=== PATIENT | male | born 1975 | race Caucasian/White ===

== ENCOUNTER 2020-11-17 19:08 | Inpatient (IN) | payer SELFPAY ==
[~2020-11-17] VITALS: Ht 152.7 cm; Wt 82.6 kg
[2020-11-17 21:08] LABS: BASOPHILS % 0.3 % (0.0-2.0); EOSINOPHILS % 0.3 % (0.0-5.0); HEMATOCRIT. 26.1 % (42.0-52.0); HEMOGLOBIN. 8.3 g/dL (14.0-18.0); LYMPHOCYTES % 30.8 % (20.0-50.0); MEAN CORPUSCULAR HEMOGLOBIN 30.1 pg (28.0-32.0); MEAN CORPUSCULAR VOLUME 95.1 fL (80.0-94.0); MONOCYTES % 14.7 % (2.0-8.0); NEUTROPHILS % 53.9 % (40.0-76.0); RED BLOOD CELL COUNT 2.75 mill/uL (4.7-6.1); RED CELL DISTRIBUTION WIDTH 20.2 % (11.6-14.6)
[2020-11-17 21:17] LABS: CHLORIDE 113 mEq/L (98-107)
[2020-11-17 21:19] LABS: INR 1.3
[2020-11-17 21:34] LABS: ETHANOL BLOOD 397 mg/dL
[2020-11-17] MEDS ORDERED: SODIUM CHLORIDE 0.9% 1,000 ML IV ONE (22:00)
[2020-11-17] MEDS ORDERED: CEFTRIAXONE 1 G PREMIX 50 ML IV ONE (22:00)
[2020-11-18 03:56] LABS: CLARITY URINE CLEAR (CLEAR); COLOR URINE DK YELLOW (YELLOW); KETONES URINE TRACE (NEGATIVE); LEUKOCYTE ESTERASE URINE NEGATIVE (NEGATIVE); NITRITE URINE NEGATIVE (NEGATIVE); OCCULT BLOOD URINE NEGATIVE (NEGATIVE); PROTEIN URINE TRACE (NEGATIVE); SPECIFIC GRAVITY URINE 1.023 (1.005-1.030)
[2020-11-18 05:04] LABS: *AMPHETAMINES SCREEN URINE NEGATIVE (NEGATIVE); *BARBITURATES SCREEN URINE NEGATIVE (NEGATIVE); *BENZODIAZEPINES SCREEN URINE NEGATIVE (NEGATIVE); *COCAINE SCREEN URINE NEGATIVE (NEGATIVE); METHADONE URINE SCREEN NEGATIVE (NEGATIVE)
[2020-11-18 05:05] LABS: CANNABINOID URINE SCREEN NEGATIVE (NEGATIVE); OPIATES URINE SCREEN NEGATIVE (NEGATIVE); PHENCYCLIDINE URINE SCREEN NEGATIVE (NEGATIVE)
[2020-11-18 08:00] VITALS: BP 122/82
[2020-11-18] MEDS ORDERED: FUROSEMIDE 40MG TABLET PO SCH (09:00)
[2020-11-18] MEDS: FUROSEMIDE 40MG/4ML VIAL IVP SCH (09:25)
[2020-11-18] MEDS: SPIRONOLACTONE 50MG TABLET PO SCH (09:26)
[2020-11-18] MEDS: PANTOPRAZOLE 40MG DR TABLET PO SCH (09:26)
[2020-11-18] MEDS: MULTIVITAMINS,THER W-MINERALS TABLET PO SCH (09:26)
[2020-11-18] MEDS: METOPROLOL TARTRATE 50MG TABLET PO SCH ×2 (09:26→20:27)
[2020-11-18 11:25] VITALS: BP 122/82
[2020-11-18] MEDS ORDERED: ONDANSETRON HCL 4MG/2ML INJ IV PRN (11:45)
[2020-11-18] MEDS ORDERED: NALOXONE HCL 0.4MG/ML VIAL IV PRN (11:45)
[2020-11-18] MEDS ORDERED: HYDROCODONE/ACETAMINOPHEN 5/325MG TABLET PO PRN (11:45)
[2020-11-18 12:00] VITALS: BP 149/93
[2020-11-18] MEDS: FOLIC ACID 1 MG, THIAMINE HCL 100 MG in DEXTROSE 5% WATER 1,000 ML IV SCH (13:52)
[2020-11-18] MEDS ORDERED: INFLUENZA VACCINE 05/PF 0.5 ML SYRINGE IM ONE (15:30)
[2020-11-18] MEDS ORDERED: PNEUMOCOCCAL 23-VAL P-SAC VAC 0.5 ML IM ONE (15:30)
[2020-11-18 16:00] VITALS: BP 144/86
[2020-11-18 20:00] VITALS: BP 132/89
[2020-11-19] VITALS: BP 139/89
[2020-11-19 04:00] VITALS: BP 153/88
[2020-11-19 07:13] LABS: BASOPHILS % 1.1 % (0.0-2.0); EOSINOPHILS % 1.6 % (0.0-5.0); HEMATOCRIT. 23.8 % (42.0-52.0); HEMOGLOBIN. 7.7 g/dL (14.0-18.0); MEAN CORPUSCULAR HEMOGLOBIN 30.5 pg (28.0-32.0); MEAN CORPUSCULAR VOLUME 94.3 fL (80.0-94.0); MEAN PLATELET VOLUME 8.9 fl (7.4-10.4); MONOCYTES % 11.2 % (2.0-8.0); NEUTROPHILS % 64.1 % (40.0-76.0); PLATELET 109 x1000/uL (130-400); RED BLOOD CELL COUNT 2.52 mill/uL (4.7-6.1); RED CELL DISTRIBUTION WIDTH 19.8 % (11.6-14.6)
[2020-11-19 07:27] LABS: CHLORIDE 109 mEq/L (98-107)
[2020-11-19 07:29] LABS: INR 1.2; PARTIAL THROMBOPLASTIN TIME 36.6 sec (23.4-31.0); PROTHROMBIN TIME 13.2 sec (9.6-11.0)
[2020-11-19 08:00] VITALS: BP 152/94
[2020-11-19] MEDS ORDERED: LIDOCAINE HCL 1% 20ML VIAL (Pyxis) INJ ONE (08:06)
[2020-11-19] MEDS ORDERED: SODIUM BICARBONATE 4% (2.4MEQ) 5ML VIAL IV ONE (08:06)
[2020-11-19] MEDS: FUROSEMIDE 40MG/4ML VIAL IVP SCH (11:06)
[2020-11-19] MEDS: FOLIC ACID 1 MG, THIAMINE HCL 100 MG in DEXTROSE 5% WATER 1,000 ML IV SCH (11:06)
[2020-11-19] MEDS: MULTIVITAMINS,THER W-MINERALS TABLET PO SCH (11:07)
[2020-11-19] MEDS: METOPROLOL TARTRATE 50MG TABLET PO SCH (11:07)
[2020-11-19] MEDS: PANTOPRAZOLE 40MG DR TABLET PO SCH (11:07)
[2020-11-19] MEDS: SPIRONOLACTONE 50MG TABLET PO SCH (11:07)
[2020-11-19 12:00] VITALS: BP 146/82
[2020-11-19] MEDS ORDERED: SPIR100T5 MT (12:38)
[2020-11-19] MEDS ORDERED: FURO-151 MT (12:38)
[2020-11-19] MEDS ORDERED: AMLO10TA80 MT (12:38)
[2020-11-19] MEDS ORDERED: METO-539 PO (12:38)
[2020-11-19] MEDS ORDERED: POTASSIUM CHLORIDE 20MEQ TABLET SR PO NR (12:45)
[2020-11-19 14:21] VITALS: BP 133/72
[2020-11-19 16:00] VITALS: BP 133/72
== END 2020-11-19 19:15 | disposition home or self-care (01) ==
LOC: ER 19:08 → EDBEDREQ 23:14 → EDBEDREQTM 23:14 → MICUSO 11-18 00:04 → 8WST 11-18 05:11
PROVIDERS: ADMIT Internal Medicine; ATTEND Internal Medicine
PROC: 0W9G3ZZ Drainage of Peritoneal Cavity, Percutaneous Approach (ICD-10-PCS; principal; 2020-11-19)
DX: K74.60 Unspecified cirrhosis of liver (principal); K85.90 Acute pancreatitis without necrosis or infection, unspecified; E43 Unspecified severe protein-calorie malnutrition; R18.8 Other ascites; E87.8 Other disorders of electrolyte and fluid balance, not elsewhere classified; E11.9 Type 2 diabetes mellitus without complications; E66.9 Obesity, unspecified; D64.9 Anemia, unspecified; F10.129 Alcohol abuse with intoxication, unspecified; Y90.8 Blood alcohol level of 240 mg/100 ml or more; Z71.41 Alcohol abuse counseling and surveillance of alcoholic; Z20.822 Contact with and (suspected) exposure to COVID-19; Z68.35 Body mass index [BMI] 35.0-35.9, adult; Z71.3 Dietary counseling and surveillance
CPT/HCPCS: 36415; 49083; 71045; 74176; 80048; 80053; 80305; 80320; 81003; 83605; 83880; 84484; 85025; 85049; 87426; 90686; 90732; 93306; 99291; J0696; J1940; J3411; J3490; J7030; J7070; G0480

== ENCOUNTER → 2023-03-26 | Emergency (ER) | payer MEDICAID ==
[~2023-03-26] VITALS: Ht 170.2 cm; Wt 82.0 kg
[~2023-03-26] MED LIST: ACETAMINOPHEN 325MG TABLET PO PRN; AMLO10TA80 MT; AMOX1TAB16 MT; BLOOD SUGAR DIAGNOSTIC STRIP TEST SCH; DEXT 5%/0.45% NACL 500ML 1,000 ML IV ONE; DEXTROSE 50% WATER 50ML SYRINGE IV PRN; FURO-151 MT; INSULIN LISPRO 100 UNITS/ML SUBCUT SCH; IPRATROPIUM/ALBUTEROL 0.5-3(2.5)MG/3ML NEB HHN PRN; LACTULOSE ENEMA 1,000ML BOTTLE PR STA; LACTULOSE PR NR; METO-539 PO; MVI, ADULT NO.1 10 ML, FOLIC ACID 1 MG, THIAMINE HCL 100 MG in SODIUM CHLORIDE 0.9% 1,0... IV ONE; ONDANSETRON HCL 4MG/2ML INJ IV PRN; RIFAXIMIN 550 MG TABLET PO SCH; SODIUM CHLORIDE 0.45% 1,000 ML IV SCH; SPIR100T5 MT; SUCR1TAB MT; THIA100T88 MT; THIAMINE HCL 100MG TABLET PO SCH; WATER FOR IRRIGATION STERILE PR NR
[2023-03-26 16:34] LABS: HEMATOCRIT. 21.9 % (42.0-52.0); MEAN CORPUSCULAR HEMOGLOBIN 21.9 pg (28.0-32.0); MEAN CORPUSCULAR HGB CONC 29.7 g/dL (31.0-37.0); MEAN PLATELET VOLUME 9.4 fl (7.4-10.4); PLATELET 140 x1000/uL (130-400); RED BLOOD CELL COUNT 2.96 mill/uL (4.7-6.1); RED CELL DISTRIBUTION WIDTH 23.3 % (11.6-14.6); WHITE BLOOD COUNT 8.9 x1000/uL (4.5-11.0)
[2023-03-26 16:38] LABS: DIFFERENTIAL COMMENT 1; HEMOGLOBIN. 6.5 g/dL (14.0-18.0)
[2023-03-26 16:47] LABS: ALANINE AMINOTRANSFERASE 383 IU/L (10-49); ALBUMIN 4.1 g/dL (3.2-4.8); ASPARTATE AMINOTRANSFERASE 734 IU/L (<34); BILIRUBIN TOTAL 2.8 mg/dL (0.1-1.0); CALCIUM 9.3 mg/dL (8.7-10.4); CARBON DIOXIDE 17 mEq/L (21-32); CHLORIDE 104 mEq/L (98-107); CREATININE 0.9 mg/dL (0.6-1.3); GLUCOSE 233 mg/dL (70-105); POTASSIUM 4.2 mEq/L (3.5-5.1); SODIUM 142 mEq/L (136-145); UREA NITROGEN BLOOD 23 mg/dL (9-23)
[2023-03-26 17:20] LABS: ANISOCYTOSIS 2+; HYPOCHROMASIA 2+; MICROCYTOSIS 2+; PLATELET ESTIMATE NORMAL
[2023-03-26] MEDS: LORAZEPAM 1MG TABLET PO ONE (18:00)
[2023-03-26 18:42] LABS: TROPONIN I HIGH SENSITIVITY 25 ng/L (3.0-53)
[2023-03-27] MEDS: SODIUM CHLORIDE 0.9% 1,000 ML IV SCH (01:08)
[2023-03-27] MEDS: PANTOPRAZOLE SODIUM 40 MG/VIAL IV SCH (01:09)
[2023-03-27 02:21] LABS: BG BASE EXCESS -4.9 mmol/L (-2.0-2.0); BG CARBOXYHEMOGLOBIN 0.6 % (0.5-1.5); BG DEOXYHEMOGLOBIN 5.5 % (0.0-5.0); BG FRACTION INSPIRED OXYGEN 12; BG HCO3 ACT 18.2 mmol/L (22.0-26.0); BG METHEMOGLOBIN 0.3 % (0.0-1.5); BG OXYGEN SATURATION 94.5 % (92.0-98.5); BG OXYHEMOGLOBIN 93.6 % (94.0-97.0); BG PCO2 25.9 mmHg (35.0-45.0); BG PH 7.465 (7.350-7.450); BG PO2 77.5 mmHg (75.0-100.0); BG SAMPLE SITE LEFT RADIAL; BG TOTAL HEMOGLOBIN 7.3 g/dL (12.0-18.0); BG VENT MODE ROOM AIR
[2023-03-27 02:37] LABS: HEMATOCRIT 23.5 % (42.0-52.0); HEMOGLOBIN 7.1 g/dL (14.0-18.0)
[2023-03-27 02:51] LABS: INR 1.4; PROTHROMBIN TIME 15.7 sec (9.6-11.0)
[2023-03-27 03:00] LABS: AMMONIA 181 uMol/L (<32)
[2023-03-27 03:01] LABS: LACTIC ACID 8.3 mmol/L (0.4-2.0)
[2023-03-27 03:24] LABS: AMYLASE 105 IU/L (30-118); BILIRUBIN DIRECT 2.6 mg/dL (<=3.0); CALCIUM 8.9 mg/dL (8.7-10.4); CARBON DIOXIDE 20 mEq/L (21-32); CHLORIDE 111 mEq/L (98-107); CREATININE 0.8 mg/dL (0.6-1.3); GAMMA GLUTAMYL TRANSPEPTIDASE 755 IU/L (<73); GLUCOSE 188 mg/dL (70-105); PHOSPHORUS 2.8 mg/dL (2.5-4.9); POTASSIUM 4.1 mEq/L (3.5-5.1); SODIUM 147 mEq/L (136-145); UREA NITROGEN BLOOD 29 mg/dL (9-23)
[2023-03-27] MEDS: THIAMINE HCL 100MG TABLET PO SCH (03:45)
[2023-03-27 03:46] LABS: ETHANOL BLOOD < 10 mg/dL (<10)
[2023-03-27] MEDS: LACTULOSE 20G/30ML UDC PO SCH (04:41)
[2023-03-27 04:48] LABS: HEPATITIS B SURFACE AB < 3.1 mIU/mL (<10); HEPATITIS C AB NON REACTIVE (Neg) (Negative)
[2023-03-27] MEDS: DEXT 5%/0.45% NACL 1000ML IV SCH (04:50)
[2023-03-27 05:32] LABS: CREATINE KINASE 1298 IU/L (46-171); CREATINE KINASE MB FRACTION 17.5 ng/mL (0.5-3.6); PHOSPHORUS 3.3 mg/dL (2.5-4.9)
[2023-03-27 05:43] LABS: TROPONIN I HIGH SENSITIVITY 195 ng/L (3.0-53)
[2023-03-27] MEDS: LABETALOL 5MG/ML SYR 20 MG/4 ML SYRINGE IV NR (06:46)
[2023-03-27 07:26] LABS: BG BASE EXCESS -14.7 mmol/L (-2.0-2.0); BG CARBOXYHEMOGLOBIN 1.4 % (0.5-1.5); BG DEOXYHEMOGLOBIN 2.4 % (0.0-5.0); BG FRACTION INSPIRED OXYGEN 32; BG HCO3 ACT 9.4 mmol/L (22.0-26.0); BG METHEMOGLOBIN 0.6 % (0.0-1.5); BG OXYGEN SATURATION 97.6 % (92.0-98.5); BG OXYHEMOGLOBIN 95.6 % (94.0-97.0); BG PCO2 16.7 mmHg (35.0-45.0); BG PH 7.368 (7.350-7.450); BG PO2 124.4 mmHg (75.0-100.0); BG SAMPLE SITE RIGHT BRACHIAL; BG TOTAL HEMOGLOBIN 5.6 g/dL (12.0-18.0); BG VENT MODE NASAL CANNULA
[2023-03-27 07:41] LABS: CLARITY URINE CLEAR (CLEAR); COLOR URINE DARK YELLOW (YELLOW); GLUCOSE URINE NEGATIVE (NEGATIVE); KETONES URINE TRACE (NEGATIVE); LEUKOCYTE ESTERASE URINE NEGATIVE (NEGATIVE); NITRITE URINE NEGATIVE (NEGATIVE); OCCULT BLOOD URINE NEGATIVE (NEGATIVE); PH URINE 6.5 (4.5-8.0); PROTEIN URINE TRACE (NEGATIVE); SPECIFIC GRAVITY URINE 1.024 (1.005-1.030)
[2023-03-27 08:17] LABS: *AMPHETAMINES SCREEN URINE NEGATIVE (NEGATIVE); *BARBITURATES SCREEN URINE NEGATIVE (NEGATIVE); *BENZODIAZEPINES SCREEN URINE NEGATIVE (NEGATIVE); *COCAINE SCREEN URINE NEGATIVE (NEGATIVE); CANNABINOID URINE SCREEN NEGATIVE (NEGATIVE); ECSTASY MDMA SCREEN URINE NEGATIVE (NEGATIVE); METHADONE URINE SCREEN Neg (NEGATIVE); OPIATES URINE SCREEN NEGATIVE (NEGATIVE); PHENCYCLIDINE URINE SCREEN NEGATIVE (NEGATIVE)
[2023-03-27 08:21] LABS: SQUAMOUS EPITHELIAL CELL URINE FEW /lpf (RARE/1+)
[2023-03-27 08:22] LABS: RBC URINE 0-2 /hpf (0-2); WBC URINE 0-2 /hpf (0-2)
[2023-03-27 08:23] LABS: BACTERIA URINE TRACE
[2023-03-27 08:40] LABS: OSMOLALITY URINE 597 mOsm/kg (500-850)
[2023-03-27] MEDS: BLOOD SUGAR DIAGNOSTIC STRIP TEST SCH (09:12)
[2023-03-27] MEDS: INSULIN LISPRO 100 UNITS/ML SUBCUT SCH (09:12)
[2023-03-27 09:36] LABS: AMMONIA 266 uMol/L (<32)
[2023-03-27 10:30] VITALS: O2SAT 100
[2023-03-27 11:31] VITALS: BP 132/78; PULSE 112; RESP 34; TEMP 98.5
== END ==
LOC: ER 14:06 → EDBEDREQ 17:08 → EDBEDREQSVC 19:42 → EDBEDREQ 19:42 → EDBEDREQSVC 03-27 01:09 → CANBEDREQ 03-27 15:14
DX: D64.9 Anemia, unspecified (principal); F10.129 Alcohol abuse with intoxication, unspecified; R56.9 Unspecified convulsions; Y90.9 Presence of alcohol in blood, level not specified
CPT/HCPCS: 80053; 80305; 80048; 81003; 82010; 82140; 82150; 82248; 82550; 82553; 82962; 82977; 83036; 83880; 83605; 83690; 83735; 83930; 83935; 84100; 84478; 85014; 85018; 85025; 85610; 86850; 86900; 86901; 86920; 86706; 84484; 36415; 86705; 84145; 71045; 70450; 76705; 93005; 99285; Z7610 ×2; 74176; C9113; J1815; J3411; J3490; J7030; P9016